=== PATIENT | female | born 1965 | race Caucasian/White ===

== ENCOUNTER 2021-09-04 01:11 | Emergency (ER) | payer OTHER ==
[~2021-09-04] VITALS: Ht 160 cm; Wt 59.0 kg
[2021-09-04] MEDS ORDERED: MORPHINE SULFATE 4 MG/1 ML DISP.SYRIN IM ONE (02:15)
[2021-09-04] MEDS ORDERED: MORPHINE SULFATE 4 MG/1 ML DISP.SYRIN ONE (02:43)
--- NOTE | 2021-09-04 02:46 | NUR ---
morphine 4 mg IM given via the right deltoid .
--- NOTE | 2021-09-04 03:00 | NUR ---
assisted DR: NGHIA at b/s for lab draw patient very hard stick . DR : went to to her right femoral vein to draws her labs . pressure applied for 5 minutes no hematoma no bleeding cover site with gauze secure with tape .
--- NOTE | 2021-09-04 03:15 | NUR ---
patient very hard stick unable to draw labs DR:GABRIELLA ADAIR.
[2021-09-04 03:34] LABS: HEMATOCRIT 33.8 % (31.2-41.9); MEAN CORPUSCULAR HEMOGLOBIN 30.6 uug (24.7-32.8); MEAN CORPUSCULAR VOLUME 90.4 fL (75.5-95.3); PLATELET COUNT (AUTO) 295 K/uL (179-408)
[2021-09-04 03:40] LABS: CARBON DIOXIDE 25 mmol/L (21-32); CHLORIDE 103 mmol/L (98-107); CREATININE 0.8 mg/dL (0.6-1.3); GLUCOSE 111 mg/dL (74-106); POTASSIUM 3.9 mmol/L (3.5-5.1); UREA NITROGEN, BLOOD 12 mg/dL (7-18)
[2021-09-04 03:53] LABS: ALANINE AMINOTRANSFERASE 11 U/L (14-59); ALKALINE PHOSPHATASE 64 U/L (50-136); ASPARTATE AMINOTRANSFERASE 13 U/L (15-37); BILIRUBIN,DIRECT 0.1 mg/dL (0.0-0.2); BILIRUBIN,TOTAL 0.4 mg/dL (0.2-1.0); TOTAL PROTEIN, SERUM 5.8 g/dL (6.4-8.2)
[2021-09-04] MEDS ORDERED: FURO-152 PO (05:03)
--- NOTE | 2021-09-04 05:51 | NUR ---
Patient discharged to home in stable condition. Written and verbal after care instructions given. Patient verbalizes understanding of instructions. Stressed follow up or return to ER for worsening s/s.
--- NOTE | 2021-09-04 05:55 | NUR ---
Patient discharged to home in stable condition. Written and verbal after care instructions given. Patient verbalizes understanding of instructions. Stressed follow up or return to ER for worsening s/s. v/s wnl ,no s/s of respiratory distress ,went home ambulatory steady of gait . went home with all belongings .
[2021-09-04 05:57] VITALS: BP 110/81
== END 2021-09-04 05:55 | disposition home or self-care (01) ==
LOC: ER 01:30
DX: R60.0 Localized edema (principal); F17.210 Nicotine dependence, cigarettes, uncomplicated
CPT/HCPCS: 99285; 71045; 80076; 80048; 83880; 85025; 84484; 36415; 93005; 96372; J2270; A4663